=== PATIENT | male | born 1985 | race Hispanic/Latino ===

== ENCOUNTER 2016-10-11 08:50 | Emergency (ER) | payer OTHER ==
[2016-10-11 09:20] VITALS: TEMP 98.6
--- NOTE | 2016-10-11 10:02 | ED PDOC ---
HPI: General Adult Time Seen by Provider: 10/11/16 09:00 Chief Complaint (Nursing): Dizziness/Lightheaded Chief Complaint (Provider): eye redness History Per: Patient History/Exam Limitations: no limitations Additional Complaint(s): 31yo male complaining of bilateral eye redness for 1 week. Also reports a headache. No fever, vomit, changes in vision, eye discharge. Also reports dizziness. Patient is wearing a left boot for a fracture 6 months ago. Past Medical History Reviewed: Historical Data, Nursing Documentation, Vital Signs Vital Signs: Last Vital Signs Temp 98.6 F 10/11/16 09:02 Pulse 73 10/11/16 14:56 Resp 16 10/11/16 14:56 BP 101/69 10/11/16 14:56 Pulse Ox 99 10/11/16 14:56 - Medical History PMH: No Chronic Diseases - Surgical History Surgical History: No Surg Hx - Family History Family History: States: Unknown Family Hx - Social History Current smoker - smoking cessation education provided: No Alcohol: None Drugs: Denies - Home Medications Home Medications: Ambulatory Orders Medication Instructions Recorded Meclizine [Meclizine*] 25 mg PO Q6 PRN #10 tab 10/11/16 Tobramycin 0.3% [Tobrex 0.3% Opth 1 drop EACHEYE Q4H #1 bottle 10/11/16 Soln] - Allergies Allergies/Adverse Reactions: Allergies Allergy/AdvReac Type Severity Reaction Status Date / Time aspirin Allergy RASH Verified 10/11/16 13:02 Review of Systems ROS Statement: Except As Marked, All Systems Reviewed And Found Negative Constitutional: Negative for: Fever Eyes: Positive for: Redness. Negative for: Pain, Vision Change ENT: Negative for: Throat Pain Gastrointestinal: Negative for: Vomiting Neurological: Positive for: Headache, Dizziness Physical Exam - Reviewed Nursing Documentation Reviewed: Yes Vital Signs Reviewed: Yes - Physical Exam Appears: Positive for: Well, Non-toxic, No Acute Distress Head Exam: Positive for: ATRAUMATIC, NORMAL INSPECTION, NORMOCEPHALIC Skin: Positive for: Warm, Dry Eye Exam: Positive for: EOMI, PERRL, Conjunctival injection Cardiovascular/Chest: Positive for: Regular Rate, Rhythm Respiratory: Positive for: Normal Breath Sounds. Negative for: Rales, Rhonchi, Wheezing Gastrointestinal/Abdominal: Positive for: Soft. Negative for: Tenderness Extremity: Positive for: Normal ROM Neurologic/Psych: Positive for: Alert, Oriented (x3). Negative for: Motor/ Sensory Deficits - Laboratory Results Result Diagrams: 10/11/16 10:35 10/11/16 10:35 - ECG O2 Sat by Pulse Oximetry: 100 (RA) Pulse Ox Interpretation: Normal Medical Decision Making Medical Decision Makin: Will obtain visual acuity, CT Head, labs, fluoroscein stain. rule out corneal abrasion, rule out intracranial process 1148: CT head is negative per radiology. No uptake on fluoroscein stain. [facility] normal pt resting comfortably in bed in NAD 1254 pt now reporting nausea, dizziness. Will give meclizine, zofran. 1430 patient feeling better after meclizine. dizziness resolved. Patient will be discharged with Rx meclizine and abx eye drops. Follow up with ophthalmology and clinic. stable for discharge. Disposition - Clinical Impression Clinical Impression: Conjunctivitis, Vertigo - Patient ED Disposition Is Patient to be Admitted: No Counseled Patient/Family Regarding: Studies Performed, Diagnosis, Need For Followup - Disposition Referrals: [facility] [Outside] [facility] [Outside] Adin Kelsey MD [Staff Provider] - Disposition: Routine/Home Disposition Time: 11:50 Condition: GOOD Additional Instructions: Follow up with opthalmologist in 1-2 days as well as clinic. return to the ED with any worsening or concerning symptoms. Prescriptions: Meclizine [Meclizine*] 25 mg PO Q6 PRN #10 tab PRN Reason: Dizziness Tobramycin 0.3% [Tobrex 0.3% Opth Soln] 1 drop EACHEYE Q4H #1 bottle Instructions: Vertigo (ED), Conjunctivitis (ED) Print Language: INDONESIAN Additional Comments - Additional Comments Additional Comments: Scribe Attestation: Documented by Saji Lam acting as a scribe for Lefty Diallo MD. Provider Scribe Attestation: All medical record entries made by the Scribe were at my direction and personally dictated by me. I have reviewed the chart and agree that the record accurately reflects my personal performance of the history, physical exam, medical decision making, and the department course for this patient. I have also personally directed, reviewed, and agree with the discharge instructions and disposition.
[2016-10-11 11:11] LABS: BASO % 0.2 % (0.0-2.0); EOS % 0.5 % (0.0-4.0); HEMATOCRIT 33.4 % (35.0-51.0); LYMPH # 1.5 K/uL (1.0-4.3); LYMPH % 15.5 % (20.0-40.0); MEAN CELL VOLUME 83.9 fl (80.0-94.0); MEAN CORPUSCULAR HGB CONC 34.5 g/dL (33.0-37.0); MEAN PLATELET VOLUME 7.3 fl (7.2-11.7); MONO # 1.2 K/uL (0.0-0.8); MONO % 12.8 % (0.0-10.0); NEUT # 6.8 K/uL (1.8-7.0); NRBC % 0.1 % (0.0-0.0); RED CELL DISTRIBUTION WIDTH 13.6 % (11.5-14.5); WHITE BLOOD COUNT 9.6 K/uL (4.8-10.8)
[2016-10-11 11:24] LABS: CHLORIDE 101 mmol/L (98-107); POTASSIUM 4.8 MMOL/L (3.6-5.0); SODIUM 143 mmol/l (132-148)
[2016-10-11 11:27] LABS: ALB/GLOB RATIO 0.9 (1.0-2.1); ALKALINE PHOSPHATASE 73 U/L (38-126); ALT/SGPT 30 U/L (21-72); AST/SGOT 38 U/L (17-59); BILIRUBIN,TOTAL 0.5 mg/dl (0.2-1.3); BLOOD UREA NITROGEN 10 mg/dl (9-20); CARBON DIOXIDE 27 mmol/L (22-30); GFR AFRICAN-AMERICAN > 60; TOTAL PROTEIN 8.1 G/DL (6.3-8.2)
[2016-10-11 11:28] LABS: CALCIUM 9.2 mg/dL (8.4-10.2)
--- NOTE | 2016-10-11 11:28 | CT ---
PROCEDURE: CT HEAD WITHOUT CONTRAST. HISTORY: headache COMPARISON: None available. TECHNIQUE: Axial computed tomography images were obtained through the head/brain without intravenous contrast. Radiation dose: Total exam DLP = 973.14 mGy-cm. This CT exam was performed using one or more of the following dose reduction techniques: Automated exposure control, adjustment of the mA and/or kV according to patient size, and/or use of iterative reconstruction technique. FINDINGS: HEMORRHAGE: No intracranial hemorrhage. BRAIN: No mass effect or edema. No atrophy or chronic microvascular ischemic changes.Please note that MRI with diffusion imaging is more sensitive in the detection of acute ischemic event. VENTRICLES: No hydrocephalus. CALVARIUM: Unremarkable. PARANASAL SINUSES: Mucosal polyp/ retention cyst within the posterior left ethmoid air cells. No air-fluid levels. MASTOID AIR CELLS: Unremarkable as visualized. No inflammatory changes. OTHER FINDINGS: None. IMPRESSION: No acute intracranial pathology identified.
[2016-10-11 11:46] LABS: GLUCOSE,RANDOM 91 mg/dL (75-110)
[2016-10-11] MEDS ORDERED: Tetracaine 0.5% Ophth 2 ML BOTTLE OU ONE (14:36)
[2016-10-11 14:57] VITALS: BP 101/69; PULSE 73; RESP 16
[2016-10-11 16:43] VITALS: O2SAT 100
== END 2016-10-11 15:00 | disposition home or self-care (01) ==
LOC: H.ER 08:50
DX: H10.9 Unspecified conjunctivitis (principal); R42 Dizziness and giddiness